=== PATIENT | male | born 1930 | race Caucasian/White ===

== ENCOUNTER 2016-11-01 18:33 | Emergency (ER) | payer MEDICARE, BC ==
[~2016-11-01 18:33] MED LIST: ADOVART PO; ASPIRIN PO; AVODART0.5 MG PO; B COMPLEX1 CA1 PO; COUMADIN10 MG PO; COUMADIN2.5 MG PO; COUMADIN5 MG PO; DIGOX0.25 MG PO; DIGOXIN0.25 MG/5 PO; FLEXERIL PO; IRON325 ( 65 ) PO; LANOXIN PO; LIPITOR40 MG PO; LOVENOX40 MG/0.4 INJ; OMEPRAZOLE20 M1 PO; PRAVACHOL20 MG PO; PRAVASTATIN SOD20 MG PO; PROTONIX PO; PROTONIX20 MG PO; PROTONIX40 MG/BLIS PO; ROBAXIN500 MG PO; STOOL SOFTENER1 EAC1 PO; ZITHROMAX PO
== END 2016-11-01 21:01 ==
LOC: CED 18:33
DX: S60.466A Insect bite (nonvenomous) of right little finger, initial encounter (principal); L03.011 Cellulitis of right finger; W57.XXXA Bitten or stung by nonvenomous insect and other nonvenomous arthropods, initial encounter
CPT/HCPCS: 99284

== ENCOUNTER 2016-11-27 05:55 | Inpatient (IN) | payer MEDICARE, BC ==
[~2016-11-27] VITALS: Ht 177.8 cm; Wt 60.5 kg
--- NOTE | ~2016-11-27 | CO ---
Unit #: [id number] #: [id number] Patient: ASUNCION DUDLEY JR [id number] [address] [place], [place] [address] [id number] I MR#: [id number] NAME: ASUNCION DUDLEY ROOM: 317 Age: 86 Sex: M Admission Date: 11/27/2016 : 1930 Attending Physician: Israel Hill M.D. Primary Care Physician: Mo Fnog M.D. Consultation Date: 11/28/2016 CONSULTATION REPORT BRIEF HISTORY The patient is an 86-year-old gentleman with a less than 24-hour history prior to admission of nausea, vomiting, abdominal pain, abdominal distention, decreased bowel function, also productive cough. He has had no fevers or chills, no trauma. He has had history of small bowel obstructions, resolved spontaneously. PAST MEDICAL HISTORY Complex. He has had gastric ulcers, DVT, pulmonary embolism, chronic bowel obstructions, and cardiopulmonary dysfunction. PAST SURGICAL HISTORY He has had a cholecystectomy and multiple hernia repairs. MEDICATIONS Digoxin, nitroglycerin, Protonix, and sucralfate. ALLERGIES He has an allergy to penicillin. SOCIAL HISTORY No smoking. No alcohol. FAMILY HISTORY Negative for GI malignancy. REVIEW OF SYSTEMS No cardiopulmonary complaints at this time. Else, 10 systems were reviewed and negative. PHYSICAL EXAMINATION GENERAL: He is awake, alert, is in no distress. HEENT: Unremarkable. NECK: Supple. No JVD. Trachea midline. LUNGS: Clear to auscultation. Bilateral breath sounds symmetric. CARDIOVASCULAR: Regular rate and rhythm. ABDOMEN: Soft. It is diffusely tender. No rebound. No masses. No hernias palpable. EXTREMITIES: No clubbing, cyanosis, or edema. DIAGNOSTIC STUDIES LABORATORY RESULTS: Show a white count of 17 and hemoglobin of 14. Chemistries are normal other than lactic acid elevated at 3.1. CT scan shows dilated small bowel with transition zone, also stool in colon. Unit #: [id number] #: [id number] Patient: ASUNCION DUDLEY JR ASSESSMENT 1. Pneumonia. 2. Small-bowel obstruction. PLAN Recommend IV fluids, hydrate. NG tube decompression. We will treat pneumonia with antibiotics per medicine team. We will reassess. Likely operative intervention. Dictated by... Edward Guevara/anaid TD: 11/28/2016 09:19 JOB #: [id number] CONSULTATION REPORT Page 1 of 1 X Dipak Julian MD X CONSULTATION REPORT
--- NOTE | ~2016-11-27 | CR4 ---
[facility] A Service of [facility] & [facility] RADIOLOGY TEXT RESULTS PATIENT: ASUNCION DUDLEY JR LOCATION: [facility] 317- : [birth year] UNIT #: [id number] AGE: [address]: Lindsay Quintero MD SEX: M ORDER DR: [id number] [facility] [address] [facility]. [place], [place] [address] [id number] I MR#: [id number] Acc #: [id number] NAME: ASUNCION DUDLEY JR : 1930 SEX: M STUDY DATE/TIME: 11/29/2016 15:26 UNIT: [address] ROOM: [facility] STUDY DESCRIPTION: CR Abdomen Flat Upright or Dec Attending Physician: Lindsay Quintero M.D. Ordering Physician: Lindsay Quintero M.D. Primary Care Physician: Mo Fong M.D. MEDICAL IMAGING REPORT This report is preliminary unless electronic signature is present EXAM Abdomen flat and upright 11/29/2016 INDICATION Nausea, vomiting, and abdominal pain since 11/27. Follow up small bowel obstruction. COMPARISON 11/28/2016. FINDINGS This flat and upright view of the abdomen again show dilated loops of small bowel in the mid abdomen. There is no free air. The pattern has not changed significantly from the prior study. An IVC filter is present. The nasogastric tube has its tip just below the diaphragm and probably should be advanced at least 10-15 cm. Dictated by... Sreekanth Pacheco M.D. THIS IS AN ELECTRONICALLY VERIFIED REPORT Sreekanth Pacheco M.D. at 11/30/2016 2:52 PM KARO/carlito TD: 11/30/2016 06:27 JOB #: [id number] MEDICAL IMAGING REPORT Page 1 of 1 COPY
--- NOTE | ~2016-11-27 | DS ---
Unit #: [id number] #: [id number] Patient: ASUNCION DUDLEY JR [id number] [address] [address] [id number] I MR#: [id number] NAME: ASUNCION DUDLEY JR ROOM: 317 Age: 86 Sex: M Admission Date: 11/27/2016 : 1930 Discharge Date: Attending Physician: Lindsay Quintero M.D. Primary Care Physician: Mo Fong M.D. DISCHARGE SUMMARY DISCHARGE DIAGNOSES 1. High-grade small bowel obstruction. 2. Pneumonia. 3. Paroxysmal atrial fibrillation. 4. History of pulmonary embolism. Not on anticoagulation because of gastrointestinal bleed. 5. Atrial fibrillation. 6. Peripheral arterial disease. 7. Hyperlipidemia. 8. Benign prostatic hypertrophy. 9. Gastroesophageal reflux disease. 10. Severe hearing impairment. CONSULTATION Dr. Julian. PROCEDURES None. DIAGNOSTIC STUDIES LAB DATA: WBC 7.8, hemoglobin 12.5, and platelets 171. Blood cultures negative. Lactic acid 0.7. IMAGING: Chest x-ray, 2 views, shows haziness density at the bases. Bilateral small pleural effusions present. KUB shows no free air. Dilated loop of small bowel in abdomen is present. ALLERGIES Penicillin. DISCHARGE MEDICATIONS 1. Colace 100 p.o. b.i.d. 2. Lipitor 40 daily. 3. Carafate 1 g p.o. 4 times daily. 4. Avodart 0.5 mg p.o. daily. 5. Protonix p.o. daily. 6. Nitroglycerin 0.4 sublingual p.r.n. chest pain. 7. Vitamin B complex with folic acid 0.4 mg p.o. daily. 8. Zithromax 500 p.o. daily for 4 more days. HOSPITALIZATION COURSE This is an 86-year-old admitted because of abdominal pain. Unit #: [id number] #: [id number] Patient: ASUNCION DUDLEY JR 1. High-grade small bowel obstruction. Patient seen by surgeon. Patient had CAT scan of the abdomen and pelvis, which shows high-grade small bowel obstruction and patchy left base pneumonia. No mass. Patient was treated medically. Currently, he is tolerating diet okay. Had bowel movement okay. Patient is okay to be discharged as per surgeon. 2. Left base pneumonia, community acquired. Patient was started on Rocephin and Zithromax. Continue Zithromax for four more days. 3. History of PE and atrial fibrillation. Patient is not on anticoagulation because of GI bleed according to history. Hold off on coagulation and follow up with PCP for resumption of Coumadin as per their recommendations. DISCHARGE INSTRUCTIONS 1. Patient's family wants him to go to rehab. Patient will be discharged to rehab once a bed available. 2. Follow up with LSA in two weeks' time for small bowel obstruction and history of GI bleed. Discharge time taken is 31 minutes. Dictated by... Edward Mitchell/susanne TD: 12/01/2016 13:35 JOB #: [id number] DISCHARGE SUMMARY Page 1 of 1 X Lindsay Quintero MD X DISCHARGE SUMMARY
--- NOTE | ~2016-11-27 | CR4 ---
[facility] A Service of [facility] & [facility] RADIOLOGY TEXT RESULTS PATIENT: ASUNCION DUDLEY JR LOCATION: [facility] 317- : [birth year] UNIT #: [id number] AGE: [address]: Lindsay Quintero MD SEX: M ORDER DR: [id number] [facility] [address] [facility]. [place], [place] [address] [id number] I MR#: [id number] Acc #: [id number] NAME: ASUNCION DUDLEY JR : 1930 SEX: M STUDY DATE/TIME: 11/28/2016 16:21 UNIT: A U ROOM: [facility] STUDY DESCRIPTION: CR Abdomen Flat Upright or Dec Attending Physician: Israel Hill M.D. Ordering Physician: Scott Dempsey M.D. Primary Care Physician: Mo Fong M.D. MEDICAL IMAGING REPORT This report is preliminary unless electronic signature is present EXAM Flat and upright abdomen, 11/28/2016 INDICATIONS 86-year-old male presenting for evaluation of abdominal pain and nausea. Tube placement. Symptoms for 3 days. TECHNIQUE Upright and supine views of the abdomen correlated with CT 11/27/2016. FINDINGS IVC filter and postop changes of cholecystectomy are present. There is an enteric tube present and the tip is at the level of the gastric fundus. The proximal side-hole is at the level of the distal esophagus. The tube could be advanced another 10-15 cm for positioning in the more distal stomach, if clinically desired or warranted. There is atelectasis or pneumonia in the left lung base. Dilatation of small bowel in the upper abdomen measures up to 5 cm. There are air-fluid levels on the upright view. There is colonic gas present along with excreted contrast material within the bladder. IMPRESSION 1. Enteric tube tip is at the level of the gastric fundus. The proximal side-hole is at the level of the distal esophagus. The tube could be advanced 10-15 cm for positioning in the more distal stomach, if clinically desired or warranted. 2. Imaging findings most characteristic of a small bowel obstruction. Small bowel diameter up to 5 cm. STAT * RESULT [facility] A Service of [facility] & [facility] RADIOLOGY TEXT RESULTS PATIENT: ASUNCION DUDLEY JR LOCATION: [facility] [address] : [birth year] UNIT #: [id number] AGE: [address]: Lindsay Quintero MD SEX: M ORDER DR: Dictated by... George Shaikh M.D. THIS IS AN ELECTRONICALLY VERIFIED REPORT George Shaikh M.D. at 11/29/2016 11:43 AM BRITNEY/fredrick TD: 11/28/2016 17:27 JOB #: [id number] MEDICAL IMAGING REPORT Page 1 of 1 COPY
--- NOTE | ~2016-11-27 | HP ---
Unit #: [id number] #: [id number] Patient: ASUNCION DUDLEY JR [id number] [address] [place], [place] [address] [id number] I MR#: [id number] NAME: ASUNCION DUDLEY JR ROOM: 317 Age: 86 Sex: M Admission Date: 11/27/2016 : 1930 Attending Physician: Albert Hill M.D. Primary Care Physician: Mo Fong M.D. HISTORY AND PHYSICAL CHIEF COMPLAINT Abdominal pain. HISTORY OF PRESENT ILLNESS The patient is an 86-year-old male with the past medical history of a small bowel obstruction, pulmonary embolism, chronic anticoagulation, atrial fibrillation, peripheral artery disease, hyperlipidemia, BPH and GERD, presented to the emergency room with the abdominal pain. The patient stated the abdominal pain is generalized and it started around four or five hours prior to the arrival to the emergency room. The patient states the pain has been similar to the previous presentation with the small bowel obstruction. The patient also presented positive for the vomiting and complains of the productive cough that started today. The patient was found to have a high-grade small-bowel obstruction and opacity at the left base and concerning for the pneumonia. The patient is being admitted for the above reasons; denies any fever, chills, chest pain. PAST MEDICAL HISTORY History of a high-grade small bowel obstruction, pulmonary embolism, chronic anticoagulation with Coumadin, atrial fibrillation, peripheral arterial disease, hyperlipidemia, BPH, GERD, hearing impairment. PAST SURGICAL HISTORY Cholecystectomy, hernia repair, filter in bilateral groin regions. SOCIAL HISTORY The patient denies tobacco, alcohol or any illicit drug abuse. He is very active, maintains three acres of property. He continues to drive. FAMILY HISTORY Family history is notable for mother having coronary artery disease in her 90s. ALLERGIES Penicillin. HOME MEDICATIONS He is on Lipitor, Avodart, stool softener, digoxin, nitroglycerin, Protonix, Carafate and vitamin B. REVIEW OF SYSTEMS Positive for abdominal pain. Positive for vomiting. Denies any chest pain. Positive for cough. Denies any headache. Denies any weakness. Unit #: [id number] #: [id number] Patient: ASUNCION DUDLEY JR Other systems reviewed and all are negative. PHYSICAL EXAMINATION GENERAL APPEARANCE: On examination the patient is lying on a bed, not in acute distress. VITAL SIGNS: Temperature 97.3, pulse 80, respiratory rate 22, blood pressure 126/70, sating 94% at room air. HEENT: Head atraumatic and normocephalic. Pupils equal, round and reacting to light and accommodation. Status post NG tube with a bilious secretion up to 300 mL on a low wall suction container. HEART: Irregular rate and rhythm. ABDOMEN: Soft. Positive bowel sounds. Positive for tenderness. No rebound. LUNGS: Decreased air entry at the bases. EXTREMITIES: No cyanosis. No clubbing. NEUROLOGIC: Awake and alert. Hard of hearing. DIAGNOSTIC STUDIES LABORATORY DATA: Sodium 140, potassium 4.2, chloride 100, bicarb 27, glucose 186, BUN 16, creatinine 0.9, AST 21, ALT 22, alkaline phosphatase 65, direct bilirubin 0.3, indirect bilirubin 1.5, albumin 4.4, lipase 30, amylase 19, digoxin level is 10.3, WBC 17.6, hemoglobin 16.2, hematocrit 49.1, platelet 248, bands 1% and UA shows positive trace leukocyte esterase and urine WBCs 0 to 2. ASSESSMENT AND PLAN 1. High-grade small-bowel obstruction. 2. Pneumonia. 3. Paroxysmal atrial fibrillation. PLAN Plan to admit the patient to the inpatient. Patient will be n.p.o., bowel rest and will have the [facility] consult. Patient will have IV antibiotics with the levofloxacin and follow up with the obstruction series and further recommendations will follow as more lab results are available. Dictated by Edward Jane/adrianne TD: 11/27/2016 20:02 JOB #: [id number] HISTORY AND PHYSICAL Page 1 of 1 X ALBERT HILL MD X HISTORY AND PHYSICAL
--- NOTE | ~2016-11-27 | CT2 ---
[facility] A Service of [facility] & [facility] RADIOLOGY TEXT RESULTS PATIENT: ASUNCION DUDLEY JR LOCATION: [facility] 317- : [birth year] UNIT #: [id number] AGE: [address]: ALBERT HILL MD SEX: M ORDER DR: [id number] [facility] [address] [facility] [place], [place] [address] [id number] I MR#: [id number] Acc #: [id number] NAME: ASUNCION DUDLEY JR : 1930 SEX: M STUDY DATE/TIME: 11/27/2016 8:25 UNIT: C3A PCU ROOM: [facility] STUDY DESCRIPTION: CT Abd and Pelv W Cont Attending Physician: Albert Hill M.D. Ordering Physician: Breezy Gomes M.D. Primary Care Physician: Mo Fong M.D. MEDICAL IMAGING REPORT This report is preliminary unless electronic signature is present EXAM CT of the abdomen and pelvis with contrast. INDICATIONS Vomiting, nausea and abdominal pain for [address] scan of the abdomen and pelvis was performed following the administration of IV contrast. Coronal and sagittal reformatted images were obtained. This CT exam was performed with one or more of the following radiation dose reduction techniques: automatic exposure control, adjustment of mA and/or kV according to patient size, and iterative reconstruction. COMPARISON Comparison is made with 12/26/2015. FINDINGS There is patchy airspace infiltrate in the left lung base which may represent pneumonia. There has been a prior cholecystectomy. The liver is unremarkable. The spleen is unremarkable. There are bilateral renal cysts. The adrenal glands are unremarkable. The pancreas is unremarkable. There are dilated fluid-filled loops of small bowel. The stomach is also dilated and filled with oral contrast. The transition point to decompressed loops of small bowel is located within the midabdomen best seen on axial image 45. The small bowel loops distal to this point are decompressed. Findings are consistent with a high-grade small bowel obstruction. PELVIS: There is a large amount of stool in the rectum. There is stool seen elsewhere within the colon. There is a trace amount of fluid adjacent to dilated small bowel loops in the right pericolic gutter [facility] A Service of [facility] & [facility] RADIOLOGY TEXT RESULTS PATIENT: ASUNCION DUDLEY JR LOCATION: [facility] 317-01 : [birth year] UNIT #: [id number] AGE: [address]: ALBERT HILL MD SEX: M ORDER DR: region. Prostatomegaly. There is no free fluid in the pelvis. The bone windows are unremarkable. IMPRESSION 1. Dilated fluid-filled loops of small bowel with abrupt transition point within the mid abdomen to decompressed loops of distal small bowel. Findings are consistent with high-grade small bowel obstruction. 2. Patchy infiltrate in the left lung base may represent pneumonia. Dictated by... Royer Bolden M.D. THIS IS AN ELECTRONICALLY VERIFIED REPORT Royer Bolden M.D. at 11/28/2016 9:03 AM ALBERTO/mariola TD: 11/27/2016 22:48 JOB #: [id number] MEDICAL IMAGING REPORT Page 1 of 1 COPY
--- NOTE | ~2016-11-27 | EKG ---
PATIENT: ASUNCION DUDLEY UNIT #: [id number] Ventricular Rate: 76 BPM Atrial Rate: 75 BPM QRS Duration: 110 ms Q-T Interval: 384 ms QTC Calculation(Bezet): 432 ms Calculated R [place]: -35 degrees Calculated T [place]: 55 degrees Diagnosis Line: Atrial fibrillation Diagnosis Line: Left axis deviation Diagnosis Line: Incomplete right bundle branch block Diagnosis Line: Septal infarct , age undetermined Diagnosis Line: Abnormal ECG Diagnosis Line: When compared with ECG of 03-JAN-2016 07:55, Diagnosis Line: Atrial fibrillation has replaced Sinus rhythm Diagnosis Line: Incomplete right bundle branch block is now Diagnosis Line: Present Diagnosis Line: Septal infarct is now Present Diagnosis Line: Confirmed by BELKYS LEWIS MD ([id number]) on Diagnosis Line: 11/29/2016 8:55:07 AM INTERPRETING MD: JOSHUA WASHBURN
--- NOTE | ~2016-11-27 | CR63 ---
[facility] A Service of [facility] & [facility] RADIOLOGY TEXT RESULTS PATIENT: ASUNCION DUDLEY JR LOCATION: [facility] 317- : [birth year] UNIT #: [id number] AGE: [address]: Lindsay Quintero MD SEX: M ORDER DR: [id number] [facility] [address] [facility]. [place], [place] [address] [id number] I MR#: [id number] Acc #: [id number] NAME: ASUNCION DUDLEY : 1930 SEX: M STUDY DATE/TIME: 11/30/2016 11:10 UNIT: [address] ROOM: [facility] STUDY DESCRIPTION: CR Chest 2 View Attending Physician: Lindsay Quintero M.D. Ordering Physician: Lindsay Quintero M.D. Primary Care Physician: Mo Fong M.D. MEDICAL IMAGING REPORT This report is preliminary unless electronic signature is present EXAM Chest 2 views 11/30/2016 1110 hours HISTORY 86-year-old man with cough and shortness of air for 1 day. COMPARISON 01/02/2016 FINDINGS Upright PA and lateral views of the chest demonstrate heart size at the upper limits of normal and tortuous aorta unchanged. The pulmonary vascularity is normal. PA view demonstrates minimal hazy bibasilar density projecting posteriorly on the lateral film with blunting of both costophrenic sulci on the lateral film suggesting small effusions. IMPRESSION 1. Heart size is at the upper limits of normal with stable tortuous aorta. 2. The PA view demonstrates minimal hazy density at the bases projecting posteriorly on the lateral film. There are very small bilateral pleural effusions seen only on the lateral views. Dictated by... Kira Bush M.D. THIS IS AN ELECTRONICALLY VERIFIED REPORT Kira Bush M.D. at 11/30/2016 4:16 PM CYRUS/laura TD: 11/30/2016 14:49 JOB #: [id number] [facility] A Service of [facility] & [facility] RADIOLOGY TEXT RESULTS PATIENT: ASUNCION DUDLEY JR LOCATION: [facility] 317-01 : [birth year] UNIT #: [id number] AGE: [address]: Lindsay Quintero MD SEX: M ORDER DR: MEDICAL IMAGING REPORT Page 1 of 1 COPY
[2016-11-27] MEDS ORDERED: LIPITOR40 MG PO (06:09)
[2016-11-27] MEDS ORDERED: STOOL SOFTENER100 M1 PO (06:09)
[2016-11-27] MEDS ORDERED: AVODART0.5 MG PO (06:09)
[2016-11-27] MEDS ORDERED: DIGOX250 MCG PO (06:09)
[2016-11-27] MEDS ORDERED: PROTONIX PO (06:10)
[2016-11-27] MEDS ORDERED: CARAFATE1 GM PO (06:10)
[2016-11-27] MEDS ORDERED: NITROGLYGERIN0.4 MG SL (06:10)
[2016-11-27] MEDS ORDERED: GNP B-50 COMPL0.4 MG PO (06:11)
[2016-11-27 06:50] LABS: BASOPHIL# 0.2 X10e3 (0-0.3); BASOPHIL% 1.1 % (0-2.5); EOSINOPHIL% 0.2 % (0.0-7.0); HEMATOCRIT 49.1 % (38.0-50.0); HEMOGLOBIN 16.2 gm/dL (13.0-16.0); LYMPHOCYTE# 1.4 X10e3 (1.0-3.5); LYMPHOCYTE% 7.8 % (17.0-45.0); MEAN CELL VOLUME 96.6 FL (83-96); MEAN CORPUSCULAR HEMOGLOBIN 31.9 PG (28-34); MEAN PLATELET VOLUME 8.8 FL (6.5-11.5); MONOCYTE# 2.2 X10e3 (0-1.0); MONOCYTE% 12.7 % (3.0-12.0); NEUTROPHIL# 13.8 X10e3 (1.5-7.1); NEUTROPHIL% 78.2 % (40-75); PLATELET COUNT 248 X10e3 (140-420); RED BLOOD COUNT 5.09 X10e (3.90-5.60); RED CELL DISTRIBUTION WIDTH 15.2 % (11.0-15.5); WHITE BLOOD COUNT 17.6 X10e3 (4.0-10.5)
[2016-11-27 06:58] LABS: DIFF IND YES
[2016-11-27 07:24] LABS: ALBUMIN SERUM 4.4 g/dL (3.5-5.0); BILIRUBIN, DIRECT 0.3 mg/dL (0.0-0.2); BILIRUBIN,INDIRECT 1.5 mg/dL (0.0-0.9); BILIRUBIN,TOTAL 1.8 mg/dL (0.2-2.0); BUN/CREATININE RATIO 17.77; CALCIUM SERUM 9.9 mg/dL (8.4-10.2); CREATININE SERUM 0.9 mg/dL (0.6-1.4); POTASSIUM 4.2 mmol/L (3.5-5.1); PROTEIN TOTAL SERUM 7.2 g/dL (6.0-8.3)
[2016-11-27 09:00] LABS: PLATELET ESTIMATE NORMAL (NORMAL)
[2016-11-27 09:11] LABS: URINE SOURCE CLEAN CATCH
[2016-11-27 09:20] LABS: URINE APPEARANCE CLEAR; URINE BLOOD NEG (NEG); URINE COLOR DK YELLOW; URINE GLUCOSE NEG (NEG); URINE KETONE TRACE (NEG); URINE LEUKOCYTE ESTERASE TRACE (NEG); URINE NITRATE NEG (NEG); URINE PH 6.5 (5-8); URINE PROTEIN TRACE (NEG)
[2016-11-27 09:23] LABS: URINE BACTERIA AUWI NEG (NEGATIVE); URINE SQUAMOUS EPITHELIAL CELL NONE SEEN /[HPF]; UWBCS1 AUWI 0-2 (0-5)
[2016-11-27 09:30] LABS: CULTURE INDICATED? NO; URINE BILIRUBIN NEG (NEG)
[2016-11-27 21:30] LABS: HEMATOCRIT 47.6 % (38.0-50.0); HEMOGLOBIN 15.7 gm/dL (13.0-16.0); MEAN CELL VOLUME 97.9 FL (83-96); MEAN CORPUSCULAR HEMOGLOBIN 32.3 PG (28-34); MEAN PLATELET VOLUME 9.2 FL (6.5-11.5); RED BLOOD COUNT 4.87 X10e (3.90-5.60); RED CELL DISTRIBUTION WIDTH 15.3 % (11.0-15.5)
[2016-11-27 21:31] LABS: WHITE BLOOD COUNT 27.2 X10e3 (4.0-10.5)
[2016-11-28 06:31] LABS: BASOPHIL% 0.1 % (0-2.5); EOSINOPHIL% 0.1 % (0.0-7.0); HEMOGLOBIN 14.8 gm/dL (13.0-16.0); LYMPHOCYTE# 1.6 X10e3 (1.0-3.5); LYMPHOCYTE% 8.8 % (17.0-45.0); MEAN CELL VOLUME 97.3 FL (83-96); MEAN CORPUSCULAR HGB CONC 32.9 g/dL (30-36); MEAN PLATELET VOLUME 9.5 FL (6.5-11.5); MONOCYTE# 2.9 X10e3 (0-1.0); MONOCYTE% 16.6 % (3.0-12.0); NEUTROPHIL# 13.1 X10e3 (1.5-7.1); NEUTROPHIL% 74.4 % (40-75); PLATELET COUNT 224 X10e3 (140-420); RED BLOOD COUNT 4.62 X10e (3.90-5.60); RED CELL DISTRIBUTION WIDTH 15.2 % (11.0-15.5); WHITE BLOOD COUNT 17.7 X10e3 (4.0-10.5)
[2016-11-28 06:34] LABS: DIFF IND NO
[2016-11-28 07:55] LABS: CALCIUM SERUM 8.2 mg/dL (8.4-10.2); GLOM FILT RATE Estimated 66.9 mL/min (>60)
[2016-11-29 06:02] LABS: HEMATOCRIT 41.2 % (38.0-50.0); HEMOGLOBIN 13.7 gm/dL (13.0-16.0); MEAN CELL VOLUME 97.1 FL (83-96); MEAN CORPUSCULAR HEMOGLOBIN 32.3 PG (28-34); MEAN CORPUSCULAR HGB CONC 33.3 g/dL (30-36); MEAN PLATELET VOLUME 8.8 FL (6.5-11.5); RED BLOOD COUNT 4.25 X10e (3.90-5.60); RED CELL DISTRIBUTION WIDTH 15.3 % (11.0-15.5); WHITE BLOOD COUNT 11.8 X10e3 (4.0-10.5)
[2016-11-29 06:15] LABS: INR 1.1; PROTHROMBIN TIME (PATIENT) 11.4 SECONDS (10.0-11.7)
[2016-11-29 06:42] LABS: BUN/CREATININE RATIO 28.75; CREATININE SERUM 0.8 mg/dL (0.6-1.4); GLOM FILT RATE Estimated 79.8 mL/min (>60); POTASSIUM 4.1 mmol/L (3.5-5.1)
[2016-12-01 05:23] LABS: HEMATOCRIT 37.9 % (38.0-50.0); HEMOGLOBIN 12.5 gm/dL (13.0-16.0); MEAN CELL VOLUME 96.7 FL (83-96); MEAN CORPUSCULAR HEMOGLOBIN 31.8 PG (28-34); MEAN CORPUSCULAR HGB CONC 32.9 g/dL (30-36); MEAN PLATELET VOLUME 9.5 FL (6.5-11.5); RED BLOOD COUNT 3.92 X10e (3.90-5.60); RED CELL DISTRIBUTION WIDTH 14.8 % (11.0-15.5); WHITE BLOOD COUNT 7.8 X10e3 (4.0-10.5)
== END 2016-12-01 16:43 | DRG 388 ==
LOC: CED 05:55 → C3A PCU 10:10 → CEDOF 10:10 → C3A PCU 19:38
PROVIDERS: Emergency Medicine; Internal Medicine; Specialist
DX: K56.60 Unspecified intestinal obstruction (principal); J18.9 Pneumonia, unspecified organism; J91.8 Pleural effusion in other conditions classified elsewhere; E87.2 Acidosis; I48.0 Paroxysmal atrial fibrillation; I73.9 Peripheral vascular disease, unspecified; E78.5 Hyperlipidemia, unspecified; N40.0 Benign prostatic hyperplasia without lower urinary tract symptoms; K21.9 Gastro-esophageal reflux disease without esophagitis; H91.90 Unspecified hearing loss, unspecified ear; Z88.0 Allergy status to penicillin; Z82.49 Family history of ischemic heart disease and other diseases of the circulatory system; Z90.49 Acquired absence of other specified parts of digestive tract; Z86.711 Personal history of pulmonary embolism
CPT/HCPCS: 36415; 71020; 74020; 74177; 80048; 80076; 80162; 81003; 82150; 82947; 83605; 83690; 85025; 85027; 85610; 87040; 93005; 96361; 96374; 96375; 96376; 97116; 97161; 97167; 99285; C9113; G8987-GO; G8988-GO; G8989-GO; G8990-GP; G8991-GP; J0456; J0696; J1650; J2270; J2405; Q9967

== ENCOUNTER 2016-12-06 11:04 | Inpatient (IN) | payer MEDICARE, BC ==
[~2016-12-06] VITALS: Ht 177.8 cm; Wt 62.0 kg
--- NOTE | ~2016-12-06 | DS ---
Unit #: [id number] #: [id number] Patient: ASUNCION DUDLEY JR [id number] [address] [place], [place] [address] [id number] I MR#: [id number] NAME: ASUNCION DUDLEY JR ROOM: 318 Age: 86 Sex: M Admission Date: 12/06/2016 : 1930 Discharge Date: 12/12/2016 Attending Physician: Lindsay Quintero M.D. Primary Care Physician: Mo Fong M.D. DISCHARGE SUMMARY DISPOSITION To the rehab, [facility]. PRINCIPAL DISCHARGE DIAGNOSES 1. Small bowel obstruction. 2. Status post exploratory laparotomy with small bowel resection. 3. Meckel's diverticulectomy. CONSULTATION Dr. Julian with [facility] HOSPITAL COURSE Qzmpeh-crawy-uqvy-old male who was admitted on December 06 for the recurrent abdominal pain with associated nausea and vomiting. She had NG tube placed and showed biliary secretions. He had a CT scan of the abdomen, showed high grade small bowel obstruction. He was seen by MARIANGEL and he underwent the exploratory laparotomy and small bowel resection by Dr. Julian. Postoperative course was uncomplicated. He tolerated very well. He has bowel movements, eating well, stable to be discharged. Other medical problems include, history of pulmonary embolism on chronic ambulation and history of atrial fibrillation, peripheral vascular disease, history of benign prostatic hypertrophy, hyperlipidemia. DISCHARGE MEDICATIONS Include: 1. Digoxin 0.125 mg daily 2. Stool softener docusate sodium 100 mg p.o. b.i.d. 3. Atorvastatin 40 mg daily 4. Sucralfate 1 gram q.i.d. 5. Avodart 0.5 mg daily 6. Protonix 40 mg daily 7. Sublingual nitro p.r.n. 8. Acetaminophen p.r.n. for pain 9. Zofran 4 mg p.r.n. CONDITION AT DISCHARGE Stable. Dictated by... Edward Marie/bean Unit #: [id number] #: [id number] Patient: ASUNCION DUDLEY JR TD: 12/12/2016 12:15 JOB #: [id number] DISCHARGE SUMMARY Page 1 of 1 X Hi Barrett MD DISCHARGE SUMMARY
--- NOTE | ~2016-12-06 | CO ---
Unit #: [id number] #: [id number] Patient: ASUNCION DUDLEY JR [id number] [facility] [address] [place], [place] [address] [id number] I MR#: [id number] NAME: ASUNCION DUDLEY JR ROOM: 318 Age: 86 Sex: M Admission Date: 12/06/2016 : 1930 Attending Physician: Lindsay Quintero M.D. Primary Care Physician: Mo Fong M.D. Consultation Date: 12/07/2016 CONSULTATION REPORT REASON FOR CONSULTATION Preop clearance. HISTORY OF PRESENT ILLNESS This is an 86-year-old male with a prior history of pulmonary embolism, hyperlipidemia, paroxysmal AFib, not on chronic anticoagulation since September, GERD, bleeding ulcers, and recent small bowel obstruction. He was admitted at [facility] and discharged in the first week of November for treatment of small bowel obstruction with medical management. He returned to the hospital yesterday from rehab with ongoing abdominal pain, as well as nausea and vomiting. A CT scan of the abdomen and pelvis showed recurrent small obstruction. He is to have exploratory laparoscopy tomorrow and we were asked to see him to evaluate him for a cardiac preop clearance. He denies any chest pain or discomfort now or with activities. States prior to this illness he has been fairly active. He lives alone and maintains two acres and mows the lawn twice a week with no reports of chest discomfort or shortness of air. He is lifelong nonsmoker. He denies prior history of coronary artery disease. He did have a stress test in the early 1999, which was negative. He has not had any cardiac workup since then. PAST MEDICAL HISTORY 1. PE. 2. Hyperlipidemia. 3. Paroxysmal AFib, he has been off Coumadin since September of this year. 4. GERD. 5. Bleeding ulcer. 6. Small bowel obstruction. 7. Hearing impairment. 8. Benign prostate hypertrophy. 9. Peripheral artery disease. 10. Gout. PAST SURGICAL HISTORY 1. Cholecystectomy. 2. Hernia repair. 3. Filter and bilateral groin regions. SOCIAL HISTORY Patient has been staying in rehab since his discharge last week. He lives alone and maintains 2-3 acres of property. He denies any alcohol or illicit drug use. He is a lifetime nonsmoker. FAMILY HISTORY Unit #: [id number] #: [id number] Patient: ASUNCION DUDLEY JR He denies a family history of premature coronary artery disease. States his mother lived to be in her 90s. ALLERGIES Penicillin. HOME MEDICATIONS 1. Lipitor 40 p.o. once a day. 2. Avodart 0.5 mg p.o. daily. 3. Stool softener 100 mg p.o. twice a day. 4. Digoxin 250 mcg p.o. daily. 5. Nitroglycerin sublingual 0.4 mg sublingual as needed for chest pain. 6. Protonix 40 mg p.o. before dinner. 7. Carafate 1 g p.o. 4 times a day. 8. Vitamin B complex 0.4 mg p.o. once a day. REVIEW OF SYSTEMS Ten point review of systems was conducted and was positive for abdominal pain, nausea, and vomiting. He denies any chest pain or discomfort, denies cough. Denies shortness of breath or dyspnea with exertion. Other symptoms have been reviewed and are otherwise negative. PHYSICAL EXAMINATION VITAL SIGNS: Temp 98.4, heart rate 77, blood pressure 108/61, respiratory rate 16, 98% on 2 packs. HEENT: Head is atraumatic and normocephalic. Pupils equal and round. Mucous membranes are moist and intact. NECK: Supple. Trachea is midline. No JVD. LUNGS: Clear to auscultation, diminished in the bases. Nonlabored respirations. HEART: S1 and S2. Regular rate and rhythm. No significant murmurs, rubs or gallops. ABDOMEN: Tender, hypoactive bowel sounds. Soft. EXTREMITIES: Pulses are palpable. Trace pedal edema. No cyanosis. NEUROLOGIC: He is hard of hearing. Alert and oriented x3. Moves all extremities equally and follow commands without difficulty. DIAGNOSTIC STUDIES LABORATORY RESULTS: Glucose 97, BUN 10, creatinine 1, sodium 138, potassium 3.7, chloride 105, AST 29, ALT 41, alk phos 49, amylase 14, lipase 30. Point of care troponin is less than 0.05. Hemoglobin 13.1, hematocrit 39, white blood cell count 8.1, platelets 205. IMAGING STUDIES: CT of the abdomen and pelvis shows high grade small bowel obstruction. Small bilateral effusions. Minimal ascites around the liver. Chest x-ray shows left base opacity. CARDIOVASCULAR STUDIES: EKG shows sinus rhythm with a ventricular rate of 78 and PACs for the left axis deviation and nonspecific T wave abnormalities. No acute ischemic changes. ASSESSMENT 1. Small bowel obstruction. 2. History of paroxysmal atrial fibrillation, now sinus rhythm. 3. Hyperlipidemia. 4. History of PE. Unit #: [id number] #: [id number] Patient: ASUNCION DUDLEY JR 5. Peripheral artery disease. PLAN He has no symptoms of angina or heart failure. No clinical evidence of significant valvular heart disease. His EKG is sinus rhythm with no ischemic changes. He is okay to undergo surgery at acceptable risk. We will check a CBC and BMP tomorrow. SCD for DVT prophylaxis. Thank you for asking us to see this patient. We appreciate the consult. Dictated by... KIRSTY Fregoso M.D. RB/ts TD: 12/08/2016 06:36 JOB #: [id number] CONSULTATION REPORT Page 1 of 1 X X CONSULTATION REPORT
--- NOTE | ~2016-12-06 | HP ---
Unit #: [id number] #: [id number] Patient: ASUNCION DUDLEY JR [id number] [id number] [facility]. [place], [place] [address] [id number] MR#: [id number] NAME: ASUNCION DUDLEY JR ROOM: Age: 86 Sex: M Admission Date: 12/06/2016 : 1930 Attending Physician: Breezy Gomes M.D. Primary Care Physician: Mo Fong M.D. HISTORY AND PHYSICAL CHIEF COMPLAINT Abdominal pain. HISTORY OF PRESENT ILLNESS The patient is an 86-year-old male with a history of multiple small bowel obstructions who was recently discharged from the hospital on December 06 to rehab. The patient presented from rehab with recurrent abdominal pain. The patient stated that patient has been having abdominal pain worsening since last night. The patient's last bowel movement was day before yesterday. The patient also complains of nausea and vomiting. The patient was placed on NG tube and is draining biliary secretions on low wall suction. Patient denies any fever, denies any cough, and denies any chills. The patient was seen by a surgeon with [facility] the last time who recommended medical management. However, the patient has been having recurrent admissions for the similar problem. PAST MEDICAL HISTORY 1. High-grade small bowel obstruction. 2. Pulmonary embolism on chronic anticoagulation with Coumadin but currently off chronic anticoagulation. 3. Atrial fibrillation. 4. Peripheral arterial disease. 5. Hyperlipidemia. 6. Benign prostatic hypertrophy. 7. Gastroesophageal reflux disease. 8. Hearing impairment. PAST SURGICAL HISTORY 1. Cholecystectomy. 2. Hernia repair. 3. Filter in bilateral groin regions. SOCIAL HISTORY Patient denies tobacco, alcohol, or any illicit drug abuse. He is very active and maintains three acres of property. He continues to drive. FAMILY HISTORY Notable for mother having coronary artery disease in her 90s. ALLERGIES Penicillin. HOME MEDICATIONS 1. Lipitor. Unit #: [id number] #: [id number] Patient: ASUNCION DUDLEY JR 2. Avodart. 3. Stool softener. 4. Digoxin. 5. Nitroglycerin. 6. Protonix. 7. Carafate. 8. Multivitamins. REVIEW OF SYSTEMS Positive for abdominal pain and positive for nausea and vomiting. Denies any chest pain, denies any cough, denies any headache, and denies any weakness. Other systems reviewed and all are negative. PHYSICAL EXAMINATION GENERAL: Patient is lying on bed not in acute distress. VITAL SIGNS: Temperature 98.7, pulse 98, respiratory rate 16, blood pressure 127/67, and saturating 98% at room air. HEENT: Head atraumatic and normocephalic. Pupils equal, round, and reactive to light and accommodation. Extraocular movements are intact. Status post NG tube with bilious secretions on a low wall suction container. HEART: Irregular rate and rhythm. ABDOMEN: Soft. Positive bowel sounds. Positive for tenderness. No rebound. LUNGS: Decreased air entry at the bases. EXTREMITIES: No cyanosis, no clubbing. NEUROLOGIC: Alert, awake, and oriented. No gross focal motor deficit. Hard of hearing. DIAGNOSTIC STUDIES LABORATORY: Troponin less than 0.05. Urinalysis is negative. Lactic acid is 1.4. Sodium 134, potassium 3.9, chloride 99, bicarb 25, glucose 100, BUN 12, creatinine 0.9, AST 29, ALT 41, alkaline phosphatase 49, and albumin 3.9. Amylase 14 and lipase 30. WBC 12.6, hemoglobin 15.8, hematocrit 47.3, and platelets 214,000. ASSESSMENT 1. Recurrent small bowel obstruction. 2. Abdominal pain. PLAN Admit the patient to inpatient. Patient will have [facility] consult for the recurrent abdominal obstruction. Continue with n.p.o. and IV fluids and further recommendations will follow. Dictated by Edward Jane TD: 12/06/2016 17:53 JOB #: [id number] Unit #: [id number] #: [id number] Patient: ASUNCION DUDLEY JR HISTORY AND PHYSICAL Page 1 of 1 X ALBERT BAKER MD X HISTORY AND PHYSICAL
--- NOTE | ~2016-12-06 | CT2 ---
[facility] A Service of [facility] & [facility] RADIOLOGY TEXT RESULTS PATIENT: ASUNCION DUDLEY JR LOCATION: A 318- : [birth year] UNIT #: [id number] AGE: [address]: ALBERT HILL MD SEX: M ORDER DR: [id number] [facility] [address] [facility] [place], [place] [address] [id number] I MR#: [id number] Acc #: [id number] NAME: ASUNCION DUDLEY : 1930 SEX: M STUDY DATE/TIME: 12/06/2016 14:42 UNIT: A PCU ROOM: 318 STUDY DESCRIPTION: CT Abd and Pelv W Cont Attending Physician: Albert Hill M.D. Ordering Physician: Breezy Gomes M.D. Primary Care Physician: Mo Fong M.D. MEDICAL IMAGING REPORT This report is preliminary unless electronic signature is present EXAM CT abdomen and pelvis with contrast INDICATIONS Low abdomen pain and nausea beginning today. COMPARISON 11/27/2016 TECHNIQUE Axial 5-mm images were obtained through the abdomen and pelvis with IV contrast. The patient was given 100 mL of Isovue-370. This CT exam was performed with one or more of the following radiation dose reduction techniques: Automatic exposure control, adjustment of mA and/or kV according to patient size, and iterative reconstruction. FINDINGS The lung bases are clear, except for tiny effusions. There is a tiny amount of fluid around the liver. The gallbladder has been removed. The liver is otherwise normal. The common bile duct is prominent, but normal for the patient's age and the fact that the gallbladder has been removed. The bile duct is about 14 mm in diameter. There is an IVC filter present. The spleen, pancreas, and adrenal glands are normal. The kidneys are mildly atrophic and there is a left renal cyst measuring 15 mm in diameter. Aorta is normal in size. The bowel is abnormal. There is marked distension of the distal two-thirds of the small bowel with relative collapse of the more proximal small bowel, and this suggests a high-grade distal small bowel obstruction. Some of the distal small bowel is collapsed and there is a transition zone seen in the right lower quadrant where the bowel goes from dilated up to 3 cm in transverse dimension down to about 1 cm in transverse dimension and then it enters the cecum. Similar findings were present on the previous examination. [facility] A Service of [facility] RADIOLOGY TEXT RESULTS PATIENT: ASUNCION DUDLEY JR LOCATION: C3A 318-01 : [birth year] UNIT #: [id number] AGE: [address]: ALBERT HILL MD SEX: M ORDER DR: The bladder and prostate gland are normal. The bones show degenerative changes. IMPRESSION 1. Once again, there appears to be a high-grade small bowel obstruction. The distal 7 cm of the terminal ileum are narrowed and the bowel proximal to that is markedly distended, suggesting a stricture or area of scarring in this region. 2. Small bilateral effusions. 3. Minimal ascites around the liver. Dictated by... Sreekanth Pacheco M.D. THIS IS AN ELECTRONICALLY VERIFIED REPORT Sreekanth Pacheco M.D. at 12/07/2016 6:04 AM KARO/psc TD: 12/06/2016 23:27 JOB #: [id number] MEDICAL IMAGING REPORT Page 1 of 1 COPY
--- NOTE | ~2016-12-06 | CO ---
Unit #: [id number] #: [id number] Patient: ASUNCION DUDLEY JR [id number] [address] [place], [place] [address] [id number] I MR#: [id number] NAME: ASUNCION DUDLEY JR ROOM: 318 Age: 86 Sex: M Admission Date: 12/06/2016 : 1930 Attending Physician: Lindsay Quintero M.D. Primary Care Physician: Mo Fong M.D. Consultation Date: 12/07/2016 CONSULTATION REPORT BRIEF HISTORY The patient is an 86-year-old gentleman who presents with acute onset of nausea, vomiting, abdominal distention and decreased bowel function. This is a similar presentation as of 2 weeks ago where he was found to have a high-grade small bowel obstruction, which eventually resolved. He has been in rehab since that time. He denies abdominal pain. He has had no fevers and has been hemodynamically stable. PAST MEDICAL HISTORY He has had a history of blood clots, cardiac dysfunction. PAST SURGICAL HISTORY He has had a cholecystectomy, multiple hernia repairs. MEDICATIONS Home medications are Lipitor, stool softener, digoxin, Protonix, Carafate. SOCIAL HISTORY No smoking or alcohol. FAMILY HISTORY Negative for GI malignancy. REVIEW OF SYSTEMS No cardiopulmonary complaints at this time. Ten systems reviewed and negative. PHYSICAL EXAMINATION GENERAL: He is awake, alert and appropriate. VITAL SIGNS: Currently afebrile. HEENT: Unremarkable. NECK: Neck is supple. No JVD. Trachea midline. LUNGS: Clear to auscultation. Bilateral breath sounds are symmetric. CARDIOVASCULAR: Regular rate and rhythm. ABDOMEN: His abdomen is soft. It is nontender, minimally distended. No rebound. No masses. No hernias. EXTREMITIES: No clubbing, cyanosis or edema. DIAGNOSTIC STUDIES LABS: Labs show a white count of 8.1, hemoglobin 13. Chemistries are normal. IMAGING: CT scan shows dilated small bowel with transition zone in the right lower quadrant. Unit #: [id number] #: [id number] Patient: ASUNCION DUDLEY JR ASSESSMENT Recurrent small bowel obstruction, unknown etiology. PLAN Recommend hydrate. Will have cardiology evaluate. Plan for exploratory laparotomy. Discussed in detail with the patient and son. Will prepare for surgery in a.m. Dictated by... Edward Guevara/natalie TD: 12/07/2016 13:24 JOB #: [id number] CONSULTATION REPORT Page 1 of 1 X Dipak Julian MD X CONSULTATION REPORT
--- NOTE | ~2016-12-06 | EKG ---
PATIENT: ASUNCION DUDLEY UNIT #: [id number] Ventricular Rate: 80 BPM Atrial Rate: 80 BPM P-R Interval: 134 ms QRS Duration: 86 ms Q-T Interval: 376 ms QTC Calculation(Bezet): 433 ms P [place]: 70 degrees Calculated R [place]: -36 degrees Calculated T [place]: 38 degrees Diagnosis Line: Sinus rhythm with Premature atrial complexes with Diagnosis Line: Aberrant conduction Diagnosis Line: Left axis deviation Diagnosis Line: Abnormal ECG Diagnosis Line: When compared with ECG of 27-NOV-2016 06:42, Diagnosis Line: Sinus rhythm has replaced Atrial fibrillation Diagnosis Line: Incomplete right bundle branch block is no longer Diagnosis Line: Present Diagnosis Line: Criteria for Septal infarct are no longer Present Diagnosis Line: Confirmed by LUX GALLARDO MD ([id number]) on 12/07/2016 Diagnosis Line: 11:44:54 PM INTERPRETING MD: PAULINA WASHBURN
--- NOTE | ~2016-12-06 | OR ---
Unit #: [id number] #: [id number] Patient: ASUNCION DUDLEY JR [id number] [address] [place], [place] [address] [id number] I MR#: [id number] NAME: ASUNCION DUDLEY JR ROOM: [facility] Date of Procedure: 12/08/2016 Admission Date: 12/06/2016 Surgeon: Dipak Julian M.D. : 1930 Attending Physician: Lindsay Quintero M.D. Primary Care Physician: Mo Fong M.D. OPERATIVE REPORT PREOPERATIVE DIAGNOSIS Small bowel obstruction. POSTOPERATIVE DIAGNOSIS 1. Small bowel obstruction. 2. Meckel diverticulum. PROCEDURE PERFORMED 1. Exploratory laparotomy. 2. Meckel diverticulectomy. 3. Small-bowel resection. ASSISTANT Peng Olvera M.D. ANESTHESIA General anesthesia. ESTIMATED BLOOD LOSS 50 mL. IV FLUIDS 800 crystalloid. COMPLICATIONS None. INDICATIONS FOR PROCEDURE The patient is an 86-year-old, who presents with chronic recurrent small bowel obstruction. He presents for exploratory laparotomy. DESCRIPTION OF PROCEDURE The patient was taken to the operating theater and placed in supine position. General anesthesia was induced. The abdomen was prepped and draped. A midline incision was then made. The abdominal cavity was entered without difficulty. Upon entering the abdominal cavity, there was dilatation of the small bowel, but there was some air in the colon. I followed the small bowel from the proximal ligament of Treitz to what appeared to be a Meckel diverticulum. This appeared to be the source of obstruction. There appeared to be a chronic inflammation at the Meckel's, which had tethered the small bowel and created intermittent small-bowel obstruction. Thus, I mobilized the diverticulum from its adhesions. I Unit #: [id number] #: [id number] Patient: ASUNCION DUDLEY JR then resected the small bowel measuring a total of 10 cm inclusive of the diverticulum. I did this with a KETAN stapler. I then created a [id number] small bowel anastomosis with the KETAN stapler. The enterotomies were closed with another KETAN stapler. I closed the mesentery with 3-0 silk sutures. This provided a patent anastomosis. I saw no other abnormalities. This was placed back in anatomical position and I closed with interrupted #1 Vicryl. Shaan were applied to the skin. The patient tolerated the procedure well and sent to recovery room in good condition. Dictated by... Edward Guevara/anaid TD: 12/08/2016 14:29 JOB #: [id number] OPERATIVE REPORT Page 1 of 1 X Dipak Julian MD X PROCEDURE OPERATIVE NOTE
--- NOTE | ~2016-12-06 | XA166 ---
[facility] A Service of [facility] & [facility] RADIOLOGY TEXT RESULTS PATIENT: ASUNCION DUDLEY JR LOCATION: C3A 318- : [birth year] UNIT #: [id number] AGE: [address]: Lindsay Quintero MD SEX: M ORDER DR: [id number] [facility] [address] [facility] [place], [place] [address] [id number] I MR#: [id number] Acc #: [id number] NAME: ASUNCION DUDLEY JR : 1930 SEX: M STUDY DATE/TIME: 12/07/2016 11:00 UNIT: C3A PCU ROOM: 318 STUDY DESCRIPTION: XA PICC Line Placement WO Port Attending Physician: Lindsay Quintero M.D. Ordering Physician: Dipak Julian M.D. Primary Care Physician: Mo Fong M.D. MEDICAL IMAGING REPORT This report is preliminary unless electronic signature is present EXAM Right arm PICC line insertion, 12/07/2016 HISTORY IV access needed. PRE-PROCEDURE The procedure was explained to the patient and/or patient software sales representative including risks, benefits, potential complications and potential for alternative forms of treatment. Informed consent was obtained, and prior to initiating the procedure a formal timeout procedure was performed. PROCEDURE Using full standard sterile barrier technique, including caps, gowns, gloves, masks, as well as sterile skin preparation and standard sterile draping, the right arm was prepped and draped in the usual fashion, and real-time sterile ultrasound guidance was used to localize an arm vein and to confirm vessel patency. A hard copy ultrasound image was recorded. After local anesthesia with 1% Xylocaine, the vein was punctured using real-time sterile ultrasound guidance, and an 0.018 guidewire was advanced into the superior vena cava, using fluoroscopic guidance. A 5-Faroese dual-lumen PICC was then measured and deployed with the tip positioned in the superior vena cava. The position of the line was documented with a radiographic image. The line was secured in place with an adhesive dressing and an antibiotic patch was applied. Total fluoro time was 0.5 minutes. Single fluoroscopic spot image was obtained. IMPRESSION Successful placement of a 5-Faroese dual-lumen PowerPICC via the right arm under ultrasound and fluoroscopic guidance. The tip of the PICC is in good position in the superior vena cava. [facility] A Service of [facility] RADIOLOGY TEXT RESULTS PATIENT: ASUNCION DUDLEY JR LOCATION: [facility] 318-01 : [birth year] UNIT #: [id number] AGE: [address]: Lindsay Quintero MD SEX: M ORDER DR: Dictated by... Thomas Ann M.D. THIS IS AN ELECTRONICALLY VERIFIED REPORT Thomas Ann M.D. at 12/08/2016 2:55 PM TEV/psc TD: 12/07/2016 21:25 JOB #: [id number] MEDICAL IMAGING REPORT Page 1 of 1 COPY
--- NOTE | ~2016-12-06 | EKG ---
PATIENT: ASUNCION DUDLEY UNIT #: [id number] Ventricular Rate: 91 BPM Atrial Rate: 91 BPM P-R Interval: 156 ms QRS Duration: 104 ms Q-T Interval: 354 ms QTC Calculation(Bezet): 435 ms P [place]: 55 degrees Calculated R [place]: -40 degrees Calculated T [place]: 46 degrees Diagnosis Line: Normal sinus rhythm with sinus arrhythmia Diagnosis Line: Left axis deviation Diagnosis Line: Abnormal ECG Diagnosis Line: No previous ECGs available Diagnosis Line: Confirmed by LUX GALLARDO MD ([id number]) on 12/12/2016 Diagnosis Line: 2:46:35 PM INTERPRETING MD: PAULINA WASHBURN
--- NOTE | ~2016-12-06 | EKG ---
PATIENT: ASUNCION DUDLEY UNIT #: [id number] Ventricular Rate: 85 BPM Atrial Rate: 85 BPM P-R Interval: 166 ms QRS Duration: 106 ms Q-T Interval: 390 ms QTC Calculation(Bezet): 464 ms P [place]: 109 degrees Calculated R [place]: -38 degrees Calculated T [place]: 52 degrees Diagnosis Line: Sinus rhythm with occasional Premature ventricular Diagnosis Line: complexes Diagnosis Line: Left axis deviation Diagnosis Line: Prolonged QT Diagnosis Line: Abnormal ECG Diagnosis Line: When compared with ECG of 06-DEC-2016 15:06, Diagnosis Line: Premature ventricular complexes are now Present Diagnosis Line: Aberrant conduction is no longer Present Diagnosis Line: Confirmed by PAULINA WASHBURN, LUX ([id number]) on 12/09/2016 Diagnosis Line: 7:22:20 PM INTERPRETING MD: PAULINA WASHBURN
[~2016-12-06 11:04] MED LIST changes: +CARAFATE1 GM PO; +DIGOX250 MCG PO; +GNP B-50 COMPL0.4 MG PO; +NITROGLYGERIN0.4 MG SL; +STOOL SOFTENER100 M1 PO
[2016-12-06 12:00] LABS: BASOPHIL% 0.4 % (0-2.5); EOSINOPHIL# 0.1 X10e3 (0-0.7); EOSINOPHIL% 0.4 % (0.0-7.0); HEMATOCRIT 47.3 % (38.0-50.0); HEMOGLOBIN 15.8 gm/dL (13.0-16.0); LYMPHOCYTE# 1.5 X10e3 (1.0-3.5); LYMPHOCYTE% 11.6 % (17.0-45.0); MEAN CELL VOLUME 96.6 FL (83-96); MEAN CORPUSCULAR HEMOGLOBIN 32.3 PG (28-34); MEAN CORPUSCULAR HGB CONC 33.5 g/dL (30-36); MEAN PLATELET VOLUME 9.7 FL (6.5-11.5); MONOCYTE# 1.8 X10e3 (0-1.0); MONOCYTE% 14.2 % (3.0-12.0); NEUTROPHIL# 9.3 X10e3 (1.5-7.1); NEUTROPHIL% 73.4 % (40-75); PLATELET COUNT 214 X10e3 (140-420); RED CELL DISTRIBUTION WIDTH 15.3 % (11.0-15.5); WHITE BLOOD COUNT 12.6 X10e3 (4.0-10.5)
[2016-12-06 12:03] LABS: DIFF IND NO
[2016-12-06 12:36] LABS: ALBUMIN SERUM 3.9 g/dL (3.5-5.0); BILIRUBIN, DIRECT 0.2 mg/dL (0.0-0.2); BILIRUBIN,TOTAL 1.2 mg/dL (0.2-2.0); BUN/CREATININE RATIO 13.33; CALCIUM SERUM 9.2 mg/dL (8.4-10.2); CREATININE SERUM 0.9 mg/dL (0.6-1.4); POTASSIUM 3.9 mmol/L (3.5-5.1); PROTEIN TOTAL SERUM 6.4 g/dL (6.0-8.3)
[2016-12-06 12:59] LABS: URINE SOURCE CLEAN CATCH
[2016-12-06 13:04] LABS: URINE APPEARANCE CLEAR; URINE BILIRUBIN NEG (NEG); URINE BLOOD NEG (NEG); URINE COLOR YELLOW; URINE GLUCOSE NEG (NEG); URINE KETONE NEG (NEG); URINE LEUKOCYTE ESTERASE NEG (NEG); URINE NITRATE NEG (NEG); URINE PH 7.5 (5-8); URINE PROTEIN NEG (NEG); URINE SPECIFIC GRAVITY 1.009 (1.003-1.035); URINE UROBILINOGEN 0.2 MG/DL (NEG)
[2016-12-06 13:08] LABS: CULTURE INDICATED? NO
[2016-12-06 15:39] LABS: POC - CKMB 1.2 ng/mL (0.0-7.9); POC - TROPONIN <0.05 ng/mL (<=0.05)
[2016-12-07 05:37] LABS: MEAN CELL VOLUME 96.3 FL (83-96); MEAN CORPUSCULAR HEMOGLOBIN 32.3 PG (28-34); MEAN CORPUSCULAR HGB CONC 33.5 g/dL (30-36); MEAN PLATELET VOLUME 9.1 FL (6.5-11.5); RED BLOOD COUNT 4.05 X10e (3.90-5.60); RED CELL DISTRIBUTION WIDTH 15.2 % (11.0-15.5); WHITE BLOOD COUNT 8.1 X10e3 (4.0-10.5)
[2016-12-07 05:40] LABS: HEMOGLOBIN 13.1 gm/dL (13.0-16.0)
[2016-12-07 06:17] LABS: CALCIUM SERUM 8.2 mg/dL (8.4-10.2); GLOM FILT RATE Estimated 66.9 mL/min (>60); POTASSIUM 3.7 mmol/L (3.5-5.1)
[2016-12-08 05:04] LABS: HEMATOCRIT 40.8 % (38.0-50.0); HEMOGLOBIN 13.4 gm/dL (13.0-16.0); MEAN CELL VOLUME 97.3 FL (83-96); MEAN CORPUSCULAR HGB CONC 32.9 g/dL (30-36); RED BLOOD COUNT 4.19 X10e (3.90-5.60)
[2016-12-08 06:10] LABS: BUN/CREATININE RATIO 8.88; CALCIUM SERUM 8.1 mg/dL (8.4-10.2); CREATININE SERUM 0.9 mg/dL (0.6-1.4); POTASSIUM 3.8 mmol/L (3.5-5.1)
[2016-12-09 06:26] LABS: BASOPHIL# 0.1 X10e3 (0-0.3); BASOPHIL% 0.5 % (0-2.5); EOSINOPHIL# 0.2 X10e3 (0-0.7); EOSINOPHIL% 1.1 % (0.0-7.0); HEMATOCRIT 42.8 % (38.0-50.0); HEMOGLOBIN 14.4 gm/dL (13.0-16.0); LYMPHOCYTE# 1.5 X10e3 (1.0-3.5); LYMPHOCYTE% 10.4 % (17.0-45.0); MEAN CELL VOLUME 96.3 FL (83-96); MEAN CORPUSCULAR HEMOGLOBIN 32.4 PG (28-34); MEAN CORPUSCULAR HGB CONC 33.7 g/dL (30-36); MEAN PLATELET VOLUME 9.2 FL (6.5-11.5); MONOCYTE% 20.6 % (3.0-12.0); NEUTROPHIL# 9.8 X10e3 (1.5-7.1); NEUTROPHIL% 67.4 % (40-75); PLATELET COUNT 226 X10e3 (140-420); RED BLOOD COUNT 4.44 X10e (3.90-5.60); RED CELL DISTRIBUTION WIDTH 15.2 % (11.0-15.5)
[2016-12-09 06:27] LABS: DIFF IND YES; WHITE BLOOD COUNT 14.5 X10e3 (4.0-10.5)
[2016-12-09 06:58] LABS: CALCIUM SERUM 8.2 mg/dL (8.4-10.2); CREATININE SERUM 0.9 mg/dL (0.6-1.4); POTASSIUM 3.3 mmol/L (3.5-5.1)
[2016-12-09 07:02] LABS: ANISOCYTOSIS SL; PLATELET ESTIMATE NORMAL (NORMAL)
[2016-12-10 04:28] LABS: HEMATOCRIT 39.1 % (38.0-50.0); MEAN CELL VOLUME 96.1 FL (83-96); MEAN CORPUSCULAR HEMOGLOBIN 31.9 PG (28-34); MEAN CORPUSCULAR HGB CONC 33.2 g/dL (30-36); MEAN PLATELET VOLUME 8.4 FL (6.5-11.5); RED BLOOD COUNT 4.06 X10e (3.90-5.60); RED CELL DISTRIBUTION WIDTH 15.4 % (11.0-15.5); WHITE BLOOD COUNT 12.9 X10e3 (4.0-10.5)
[2016-12-10 05:52] LABS: BUN/CREATININE RATIO 12.22; CALCIUM SERUM 7.7 mg/dL (8.4-10.2); CREATININE SERUM 0.9 mg/dL (0.6-1.4); POTASSIUM 3.8 mmol/L (3.5-5.1)
[2016-12-11 04:51] LABS: HEMATOCRIT 39.9 % (38.0-50.0); HEMOGLOBIN 13.2 gm/dL (13.0-16.0); MEAN CELL VOLUME 96.1 FL (83-96); MEAN CORPUSCULAR HEMOGLOBIN 31.9 PG (28-34); MEAN CORPUSCULAR HGB CONC 33.2 g/dL (30-36); MEAN PLATELET VOLUME 8.7 FL (6.5-11.5); RED BLOOD COUNT 4.15 X10e (3.90-5.60); RED CELL DISTRIBUTION WIDTH 15.1 % (11.0-15.5); WHITE BLOOD COUNT 10.3 X10e3 (4.0-10.5)
[2016-12-11 05:30] LABS: BUN/CREATININE RATIO 11.11; CREATININE SERUM 0.9 mg/dL (0.6-1.4); MAGNESIUM 1.9 mg/dL (1.6-3.0); POTASSIUM 4.1 mmol/L (3.5-5.1)
[2016-12-12 05:52] LABS: BUN/CREATININE RATIO 11.25; CREATININE SERUM 0.8 mg/dL (0.6-1.4); GLOM FILT RATE Estimated 79.8 mL/min (>60); POTASSIUM 3.9 mmol/L (3.5-5.1)
== END 2016-12-12 14:30 | DRG 330 ==
LOC: CED 11:04 → CEDOF 16:34 → C3A PCU 16:34 → CEDOF 17:03 → CED 17:03 → C3A PCU 17:03 → CEDOF 18:07 → C3A PCU 12-07 07:35
PROVIDERS: Emergency Medicine; Internal Medicine; Internal Medicine Cardiovascular Disease; Surgery
PROC: 02HV33Z Insertion of Infusion Device into Superior Vena Cava, Percutaneous Approach (ICD-10-PCS; 2016-12-07)
PROC: B518YZA Fluoroscopy of Superior Vena Cava using Other Contrast, Guidance (ICD-10-PCS; 2016-12-07)
PROC: B548ZZA Ultrasonography of Superior Vena Cava, Guidance (ICD-10-PCS; 2016-12-07)
PROC: 0DB80ZZ Excision of Small Intestine, Open Approach (ICD-10-PCS; principal; 2016-12-08 09:00)
DX: Q43.0 Meckel's diverticulum (displaced) (hypertrophic) (principal); K56.60 Unspecified intestinal obstruction; I73.9 Peripheral vascular disease, unspecified; I48.0 Paroxysmal atrial fibrillation; Z86.711 Personal history of pulmonary embolism; N40.0 Benign prostatic hyperplasia without lower urinary tract symptoms; E78.5 Hyperlipidemia, unspecified; K21.9 Gastro-esophageal reflux disease without esophagitis; Z90.49 Acquired absence of other specified parts of digestive tract; Z88.0 Allergy status to penicillin; E87.6 Hypokalemia; E83.42 Hypomagnesemia
CPT/HCPCS: 36415; 74177; 76937; 77001; 80048; 80076; 81003; 82150; 82553; 83605; 83690; 83735; 84484; 85025; 85027; 88307; 93005; 94760; 96361; 96374; 96375; 97116; 97163; 97166; 97530; 99285; C1751; C9113; G8978-GP; G8979-GP; G8987-GO; G8988-GO; J0330; J1644; J2270; J2370; J2405; J2710; J3010; J3475; Q9967